=== PATIENT | female | born 1980 | race Caucasian/White ===

== ENCOUNTER 2020-03-29 08:00 | Outpatient (CLI) | payer OTHER, SELFPAY ==
[2020-03-29 08:38] LABS: Alanine Aminotransferase 27 U/L (4-35); Albumin Level 4.4 g/dL (3.5-5.1); Alkaline Phosphatase 93 U/L (38-126); Anion Gap 9 mmol/L (8-16); Aspartate Amino Transferase 26 U/L (14-36); Bilirubin,Total 0.6 mg/dL (0.2-1.3); Blood Urea Nitrogen 19 mg/dL (7-17); Calcium 9.7 mg/dL (8.4-10.2); Carbon Dioxide 30 mmol/L (22-30); Chloride 98 mmol/L (98-107); Cholesterol 165 mg/dL (0-200); Estimated Glomerular Filt Rate > 60; Glucose 98 mg/dL (65-105); HDL Direct 59 mg/dL; Potassium 3.8 mmol/L (3.4-5.0); Sodium 137 mmol/L (137-145); Triglycerides 71 mg/dL (<150)
[2020-03-29 08:49] LABS: LDL Cholesterol Direct 85 mg/dL
== END 2020-03-29 08:01 | disposition home or self-care (01) ==
LOC: ANHLAB 08:07
PROVIDERS: PCP Family Medicine Adolescent Medicine; Visit Provider Physician Assistant
DX: Z13.220 Encounter for screening for lipoid disorders (principal); I10 Essential (primary) hypertension
CPT/HCPCS: 36415; 80053; 80061; 84443

== ENCOUNTER 2021-04-20 07:46 | Outpatient (CLI) | payer OTHER, SELFPAY ==
[2021-04-20 09:12] LABS: Alanine Aminotransferase 62 U/L (4-35); Albumin Level 4.2 g/dL (3.5-5.1); Alkaline Phosphatase 84 U/L (38-126); Anion Gap 12 mmol/L (8-16); Aspartate Amino Transferase 38 U/L (14-36); Bilirubin,Total 0.5 mg/dL (0.2-1.3); Blood Urea Nitrogen 12 mg/dL (7-17); Calcium 9.5 mg/dL (8.4-10.2); Carbon Dioxide 29 mmol/L (22-30); Chloride 97 mmol/L (98-107); Estimated Glomerular Filt Rate > 60; Glucose 99 mg/dL (65-110); Potassium 3.5 mmol/L (3.4-5.0); Sodium 138 mmol/L (137-145)
== END 2021-04-20 07:47 | disposition home or self-care (01) ==
LOC: ANHLAB 07:50
PROVIDERS: PCP Family Medicine Adolescent Medicine; Visit Provider Family Medicine Adolescent Medicine
DX: I10 Essential (primary) hypertension (principal)
CPT/HCPCS: 36415; 80053

== ENCOUNTER 2022-03-20 07:31 | Outpatient (CLI) | payer OTHER, SELFPAY ==
[2022-03-20 08:02] LABS: Hematocrit 38.5 % (37.0-47.0); Hemoglobin 12.3 g/dL (12.0-15.0); Mean Corpuscular HGB Conc 31.9 g/dl (32-36); Mean Corpuscular Hemoglobin 27.6 pg (26-34); Mean Corpuscular Volume 86.3 fl (80-100); Mean Platelet Volume 10.2 fl (7.4-10.4); Platelet Count Result 452 k/mm3 (150-375); Red Blood Count 4.46 M/mm3 (4.2-5.4); Red Cell Distribution Width 14.7 % (11.5-14.5); White Blood Count 13.5 K/mm3 (4.5-10.0)
[2022-03-20 08:09] LABS: Alanine Aminotransferase 30 U/L (6-35); Albumin Level 4.7 g/dL (3.5-5.1); Alkaline Phosphatase 102 U/L (38-126); Anion Gap 14 mmol/L (8-16); Aspartate Amino Transferase 27 U/L (14-36); Bilirubin,Total 0.6 mg/dL (0.2-1.3); Blood Urea Nitrogen 18 mg/dL (7-17); Calcium 9.2 mg/dL (8.4-10.2); Carbon Dioxide 29 mmol/L (22-30); Chloride 97 mmol/L (98-107); Cholesterol 206 mg/dL (0-200); Estimated Glomerular Filt Rate > 60; Glucose 104 mg/dL (65-110); HDL Direct 62 mg/dL; Potassium 3.6 mmol/L (3.4-5.0); Sodium 140 mmol/L (137-145); Triglycerides 116 mg/dL (<150)
[2022-03-20 08:12] LABS: Rheumatoid Factor < 8.6 IU/ML (<12)
[2022-03-20 08:19] LABS: LDL Cholesterol Direct 106 mg/dL
[2022-03-20 10:30] LABS: Erythrocyte Sedimentation Rate 33 mm/hr (0-20)
== END 2022-03-20 07:32 | disposition home or self-care (01) ==
PROVIDERS: PCP Family Medicine Adolescent Medicine; Visit Provider Physician Assistant
DX: M25.50 Pain in unspecified joint (principal); I10 Essential (primary) hypertension; Z13.220 Encounter for screening for lipoid disorders; E66.01 Morbid (severe) obesity due to excess calories
CPT/HCPCS: 36415; 80053; 80061; 84443; 85027; 85652; 86140; 86430

== ENCOUNTER 2022-03-30 08:50 | Outpatient (CLI) | payer OTHER, SELFPAY | END 2022-03-30 08:51 | disposition home or self-care (01) | LOC: ANHAUDIO 08:51 | PROVIDERS: PCP Family Medicine Adolescent Medicine; Visit Provider Physician Assistant | DX: H91.90 Unspecified hearing loss, unspecified ear (principal) | CPT/HCPCS: 92557; 92567 ==

== ENCOUNTER 2022-06-05 07:37 | Outpatient (CLI) | payer OTHER, SELFPAY ==
--- NOTE | ~2022-06-05 | XR_ITS ---
EXAMINATION: XR knee LT 3V DATE: 06/05/2022 08:39 INDICATION: Left knee joint pain. TECHNIQUE: 3 views of left knee were obtained. COMPARISON: None. FINDINGS: Bone alignment is normal. No fracture. There is mild osteoarthritis of medial and patellofe moral compartments characterized by tiny osteophytes. No joint space narrowing. No knee joint effusio n. IMPRESSION: 1. Mild left knee osteoarthritis. Reviewed, dictated and finalized at location A. MOTIVE PIPE FITTER
--- NOTE | ~2022-06-05 | XR_ITS ---
EXAM: XR hand BI arthritis min 3V DATE: 06/05/2022 08:39 HISTORY: M25.50 - Pain in unspecified joint . COMPARISON: None available. FINDINGS: Normal mineralization. No fracture or dislocation. No lytic or blastic lesion. Joint space s are maintained. No erosion or periosteal change. Soft tissues within normal limits. IMPRESSION: Unremarkable bilateral hand radiograph findings. Reviewed, dictated and finalized at location K. ER PRINTING SUPERVISOR
--- NOTE | ~2022-06-05 | XR_ITS ---
EXAMINATION: XR knee RT 3V DATE: 06/05/2022 08:39 INDICATION: Pain in unspecified joint. TECHNIQUE: 3 views of right knee were obtained. COMPARISON: None. FINDINGS: Bone alignment is normal. No fracture. There is mild osteoarthritis of medial and patellofe moral compartments characterized by tiny osteophytes. No joint space narrowing. No knee joint effusio n. IMPRESSION: 1. Mild right knee osteoarthritis. Reviewed, dictated and finalized at location A. PROCESSING CLERK
--- NOTE | ~2022-06-05 | XR_ITS ---
EXAM: XR foot LT standing 2V, XR foot RT standing 2V DATE: 06/05/2022 08:39 HISTORY: M25.50 - Pain in unspecified joint . COMPARISON: None available. FINDINGS: Normal mineralization. No fracture or dislocation. No lytic or blastic lesion. Loss of the longitudinal arch bilaterally. Bilateral Achilles and plantar enthesopathy Joint spaces are maintain ed. No erosion or periosteal change. Soft tissues within normal limits. IMPRESSION: Plantar and Achilles enthesopathy. Bilateral pes planus. Reviewed, dictated and finalized at location K. WASHER IMPRESSION: Plantar and Achilles enthesopathy. Bilateral pes planus.
--- NOTE | ~2022-06-05 | XR_ITS ---
EXAM: XR sacroiliac joints min 3V DATE: 06/05/2022 08:40 HISTORY: M25.50 - Pain in unspecified joint . COMPARISON: None available. FINDINGS: Normal mineralization. No fracture or dislocation. No lytic or blastic lesion. Mild osteop hytosis of the bilateral SI joints and pubic symphysis. Mild bilateral superior hip joint space narro wing No erosion or periosteal change. Pelvic phleboliths. IMPRESSION: Mild degenerative change at the bilateral SI joints. Mild bilateral hip osteoarthritis Os teitis pubis. Reviewed, dictated and finalized at location K. RVER GRAVITY PROSPECTING IMPRESSION: Mild degenerative change at the bilateral SI joints. Mild bilateral hip osteoarthritis Osteitis pubis.
--- NOTE | ~2022-06-05 | XR_ITS ---
EXAM: XR lumbar spine min 4V DATE: 06/05/2022 08:39 HISTORY: M25.50 - Pain in unspecified joint . COMPARISON: None available. FINDINGS: 5 nonrib-bearing lumbar-type vertebral bodies. Pedicles intact. Normal vertebral body alig nment. Vertebral body heights preserved. Disc spaces maintained. Mild marginal osteophytosis at L3-4 and L4-5. Multilevel lower lumbar facet sclerosis and hypertrophy. No fracture or dislocation. IMPRESSION: Mild degenerative disc disease at L3-4 and L4-5. Lower lumbar facet arthropathy Reviewed, dictated and finalized at location K. CHANGER
[2022-06-05 08:42] LABS: Vitamin D 25 Hydroxy 49.4 ng/mL
[2022-06-08 21:13] LABS: Anti Cyclic Citrullinated Pept 19 Units (<20)
== END 2022-06-05 07:38 | disposition home or self-care (01) ==
PROVIDERS: PCP Family Medicine Adolescent Medicine; Visit Provider Internal Medicine
DX: M16.0 Bilateral primary osteoarthritis of hip (principal); M53.3 Sacrococcygeal disorders, not elsewhere classified; M51.36 Other intervertebral disc degeneration, lumbar region; M77.31 Calcaneal spur, right foot; M77.32 Calcaneal spur, left foot; M20.11 Hallux valgus (acquired), right foot; M20.12 Hallux valgus (acquired), left foot; M17.0 Bilateral primary osteoarthritis of knee
CPT/HCPCS: 36415; 72110; 72202; 73130; 73562; 73620; 82306; 86038; 86200

== ENCOUNTER 2023-01-22 07:28 | Outpatient (CLI) | payer OTHER, SELFPAY | END 2023-01-22 07:29 | disposition home or self-care (01) | PROVIDERS: PCP Family Medicine Adolescent Medicine; Visit Provider Internal Medicine | DX: M25.50 Pain in unspecified joint (principal) | CPT/HCPCS: 36415; 83520 ==

== ENCOUNTER 2023-04-08 07:36 | Outpatient (CLI) | payer OTHER, SELFPAY ==
[2023-04-08 08:14] LABS: Basophils Absolute Auto 0.1 K/mm3 (0.0-0.1); Basophils Percent Auto 0.6 % (0.2-1.2); Eosinophils Absolute Auto 0.3 K/mm3 (0-0.3); Hematocrit 37.6 % (37.0-47.0); Immature Granulocyte Absolute 0.08 K/mm3 (0.00-0.031); Immature Granulocyte Percent A 0.6 % (0-0.5); Lymphocytes Absolute Auto 2.88 K/mm3 (0.9-3.2); Lymphocytes Percent Auto 21.8 % (18.3-44.2); Mean Corpuscular HGB Conc 31.9 g/dl (32-36); Mean Corpuscular Hemoglobin 26.7 pg (26-34); Mean Corpuscular Volume 83.7 fl (80-100); Mean Platelet Volume 10.3 fl (7.4-10.4); Monocytes Absolute Auto 0.7 K/mm3 (0.1-0.6); Monocytes Percent Auto 5.4 % (2.6-8.5); Neutrophils Absolute Auto 9.2 K/mm3 (1.3-6.7); Neutrophils Percent Auto 69.6 % (45.5-73.1); Platelet Count Result 389 k/mm3 (150-375); Red Blood Count 4.49 M/mm3 (4.2-5.4); Red Cell Distribution Width 15.1 % (11.5-14.5); White Blood Count 13.2 K/mm3 (4.5-10.0)
[2023-04-08 08:27] LABS: Alanine Aminotransferase 25 U/L (6-35); Albumin Level 4.3 g/dL (3.5-5.1); Alkaline Phosphatase 86 U/L (38-126); Anion Gap 12 mmol/L (8-16); Aspartate Amino Transferase 26 U/L (14-36); Bilirubin,Total 0.5 mg/dL (0.2-1.3); Blood Urea Nitrogen 17 mg/dL (7-17); Calcium 9.8 mg/dL (8.4-10.2); Carbon Dioxide 26 mmol/L (22-30); Chloride 98 mmol/L (98-107); Cholesterol 177 mg/dL (0-200); Estimated Glomerular Filt Rate > 60; Glucose 99 mg/dL (65-110); HDL Direct 55 mg/dL; Potassium 3.7 mmol/L (3.4-5.0); Sodium 136 mmol/L (137-145); Triglycerides 163 mg/dL (<150)
[2023-04-08 08:38] LABS: LDL Cholesterol Direct 84 mg/dL
[2023-04-13 04:51] LABS: FSH 4.6 mIU/mL (***); LH 8.6 mIU/mL (***); Prolactin 25.7 ng/mL (***)
== END 2023-04-08 07:37 | disposition home or self-care (01) ==
PROVIDERS: PCP Family Medicine Adolescent Medicine; Visit Provider Nurse Practitioner Family
DX: Z13.220 Encounter for screening for lipoid disorders (principal); I10 Essential (primary) hypertension; R61 Generalized hyperhidrosis
CPT/HCPCS: 36415; 80053; 80061; 83001; 83002; 84146; 84443; 85025

== ENCOUNTER 2024-05-26 10:00 | Outpatient (CLI) | payer OTHER, SELFPAY ==
[2024-05-26 10:27] LABS: Basophils Absolute Auto 0.1 K/mm3 (0.0-0.1); Basophils Percent Auto 0.7 % (0.2-1.2); Eosinophils Absolute Auto 0.2 K/mm3 (0-0.3); Hematocrit 37.5 % (37.0-47.0); Hemoglobin 11.9 g/dL (12.0-15.0); Immature Granulocyte Absolute 0.07 K/mm3 (0.00-0.031); Immature Granulocyte Percent A 0.6 % (0-0.5); Mean Corpuscular HGB Conc 31.7 g/dl (32-36); Mean Corpuscular Hemoglobin 26.5 pg (26-34); Mean Corpuscular Volume 83.5 fl (80-100); Mean Platelet Volume 10.5 fl (7.4-10.4); Monocytes Absolute Auto 0.8 K/mm3 (0.1-0.6); Monocytes Percent Auto 6.3 % (2.6-8.5); Neutrophils Absolute Auto 7.4 K/mm3 (1.3-6.7); Neutrophils Percent Auto 61.4 % (45.5-73.1); Platelet Count Result 414 k/mm3 (150-375); Red Blood Count 4.49 M/mm3 (4.2-5.4); Red Cell Distribution Width 15.6 % (11.5-14.5); White Blood Count 12.1 K/mm3 (4.5-10.0)
[2024-05-26 10:38] LABS: Alanine Aminotransferase 25 U/L (6-35); Albumin Level 4.4 g/dL (3.5-5.1); Alkaline Phosphatase 90 U/L (38-126); Anion Gap 11 mmol/L (4-12); Aspartate Amino Transferase 25 U/L (14-36); Bilirubin,Total 0.7 mg/dL (0.2-1.3); Blood Urea Nitrogen 19 mg/dL (7-17); Calcium 9.4 mg/dL (8.4-10.2); Carbon Dioxide 26 mmol/L (22-30); Chloride 101 mmol/L (98-107); Cholesterol 206 mg/dL (0-200); Estimated Glomerular Filt Rate > 60; Glucose 103 mg/dL (65-110); HDL Direct 60 mg/dL; Potassium 3.7 mmol/L (3.4-5.0); Sodium 138 mmol/L (137-145); Triglycerides 95 mg/dL (<150)
[2024-05-26 10:49] LABS: LDL Cholesterol Direct 106 mg/dL
== END 2024-05-26 10:01 | disposition home or self-care (01) ==
PROVIDERS: PCP Family Medicine Adolescent Medicine; Visit Provider Nurse Practitioner Family
DX: G47.33 Obstructive sleep apnea (adult) (pediatric) (principal); I10 Essential (primary) hypertension; Z13.220 Encounter for screening for lipoid disorders
CPT/HCPCS: 36415; 80053; 80061; 84443; 85025

== ENCOUNTER 2024-10-16 15:49 | Outpatient (CLI) | payer OTHER, SELFPAY ==
--- NOTE | ~2024-10-16 | MM_ITS ---
EXAMINATION: MM screening cristina BI w antonino HISTORY: Screening mammogram TECHNIQUE: Craniocaudal and mediolateral oblique 3-D tomosynthesis images were obtained and synthetic 2-D images were generated. Bilateral rotated lateral CC views. CAD analysis was submitted and interp reted. COMPARISON: 11/15/2017 BREAST PARENCHYMAL COMPOSITION: The breasts are almost entirely fatty. FINDINGS: There is no evidence of suspicious mass, calcification, or architectural distortion to sug gest malignancy in either breast. There has been no suspicious interval change. IMPRESSION: 1. No mammographic evidence of malignancy. 2. Recommend routine screening mammography in one year. BI-RADS Category 1: Negative Reviewed, dictated and finalized at location B.
== END 2024-10-16 15:50 | disposition home or self-care (01) ==
PROVIDERS: PCP Family Medicine Adolescent Medicine; Visit Provider Nurse Practitioner Family
DX: Z12.31 Encounter for screening mammogram for malignant neoplasm of breast (principal)
CPT/HCPCS: 77063; 77067